=== PATIENT | female | born 1980 | race Caucasian/White ===

== ENCOUNTER 2016-12-16 08:06 | Emergency (ER) | payer BC ==
[~2016-12-16] VITALS: Ht 157.5 cm; Wt 61.1 kg
[~2016-12-16 08:06] MED LIST: DOXYCYCLINE HY100 M3 PO; SERTRALINE HCL100 MG
[2016-12-16 11:10] LABS: EOSINOPHIL (%) 0.2 % (0-5); HEMATOCRIT 37.3 % (36.0-46.0); INSTRUMENT ABS NEUTROPHIL CT 4.9 K/uL; LYMPHOCYTE COUNT 0.8 K/uL (1.0-2.8); MCH 28.7 PG (29.0-34.0); MCHC 32.7 G/DL (30.0-36.0); MCV 87.8 FL (83-99); MEAN PLAT.VOLUME 11.5 uM^3 (9.5-12.4); MONOCYTE (%) 6.2 % (3-12); MONOCYTE COUNT 0.4 K/uL (0-0.8); NEUTROPHIL (%) 79.9 % (45-76); NEUTROPHIL COUNT 4.9 K/uL (1.8-6.4); PLATELET COUNT 204 K/uL (156-360); RBC DIS.WIDTH-CV 13.4 % (11.8-14.6); RBC DIS.WIDTH-SD 43.2 % (39-53); RED BLOOD COUNT 4.25 M/uL (3.80-5.20); WHITE BLOOD COUNT 6.1 K/uL (4.1-10.2)
[2016-12-16 11:21] LABS: CHLORIDE 108 mEq/L (99-109); POTASSIUM 3.9 mEq/L (3.7-5.4); SODIUM 140 mEq/L (136-147)
[2016-12-16 11:23] LABS: GLUCOSE 127 mg/dL (70-99)
[2016-12-16 11:24] LABS: ANION GAP 9 MEQ/L (2-14)
[2016-12-16 11:26] LABS: GFR ESTIMATE (CALCULATED) > 59 mL/min/
[2016-12-16 11:27] LABS: UREA NITROGEN (BUN) 6 mg/dL (9-23)
[2016-12-16] MEDS ORDERED: ZOFRAN ODT4 MG PO (12:26)
[2016-12-16 13:26] VITALS: BP 111/73
== END 2016-12-16 13:27 | disposition home or self-care (01) ==
LOC: EME 08:06
PROVIDERS: Emergency Medicine
DX: R51 Headache (principal); Z88.0 Allergy status to penicillin
CPT/HCPCS: 70450; 80048; 85025; 99281; 99284; J1885; J2765; J7030